=== PATIENT | female | born 1990 | race Caucasian/White ===

== ENCOUNTER → 2017-04-24 | Outpatient (CLI) | payer OTHER ==
[~2017-04-24] MED LIST: CITA10TA8 PO; LORA-741 PO
--- NOTE | 2017-04-24 17:12 | DIAGNOSTIC IMAGING REPORT ---
PELVIC COMPLETE NON OB, TRANSVAG-FEMALE PELVIS CLINICAL HISTORY: 26 years-old Female presenting with aching pelvic pain for 3 months, last menstrual period 03/30/2017. TECHNIQUE: Real-time grayscale and color and spectral Doppler ultrasound imaging of the pelvis was performed first using a transabdominal probe and subsequently transvaginal for better characterization. COMPARISON: None. FINDINGS: Uterus: Normal. Anteverted. The uterus measures 7.3 x 3.7 x 5.6 cm. Endometrial stripe measures 10 mm in thickness. Endometrium normal-appearing. Cervix normal. Right adnexa: Right ovary contains an apparent somewhat exophytic 2.4 x 2.1 x 1.8 cm heterogeneously isoechoic mass with color Doppler flow. Right ovary measures 5.2 x 1.8 x 2.7 cm. Normal color Doppler flow and arterial and venous waveforms within the ovarian parenchyma. Small right adnexal free fluid. Left adnexa: Left ovary normal. Left ovary measures 2.8 x 1.8 x 2.2 cm. Normal color Doppler flow and arterial and venous waveforms within the ovarian parenchyma. Other: Trace free fluid, likely physiologic. Minimal debris noted in the bladder. IMPRESSION: 1. Right ovary contains an apparent soft tissue mass. While this may represent a corpus luteum, follow-up ultrasound in 4-6 weeks or alternatively contrast-enhanced MR of the pelvis is recommended given the atypical appearance to ensure resolution. No evidence of ovarian torsion. The report will be called/faxed according to standard departmental protocol. Electronically signed by: Yohannes Mejía M.D. 04/24/2017 5:11 PM Dictated Date/Time: 04/24/2017 5:06 PM
== END | disposition home or self-care (01) ==
LOC: C.ULTR 16:21
PROVIDERS: ATTEND Physician Assistant Medical
DX: R10.2 Pelvic and perineal pain (principal); N83.9 Noninflammatory disorder of ovary, fallopian tube and broad ligament, unspecified